=== PATIENT | female | born 1975 | race Caucasian/White ===

== ENCOUNTER 2021-05-08 20:18 | Emergency (ER) | payer MEDICARE, OTHER ==
[~2021-05-08 20:18] MED LIST: IBUPROFEN800 MG PO; NORCO 5-325 TA1 EACH PO
[2021-05-08] MEDS ORDERED: MEDROL DOSEPAK 24 MG PO (20:53)
== END 2021-05-08 21:22 | disposition home or self-care (01) ==
LOC: ER1 20:18
DX: M06.9 Rheumatoid arthritis, unspecified (principal)
CPT/HCPCS: 96372; 99283; J2930